=== PATIENT | female | born 1965 | race Caucasian/White ===

== ENCOUNTER 2023-02-16 16:15 | Emergency (ER) | payer OTHER ==
--- NOTE | 2023-02-16 17:47 | XRAY Report ---
PROCEDURE: Chest 1 View X-Ray INDICATIONS: chest pain TECHNIQUE: One view of the chest was acquired. COMPARISON: None. FINDINGS: Surgical changes and devices: None. Lungs and pleura: No pleural effusions or pneumothorax. Lungs are clear. Mediastinum: Mediastinal contours appear normal. Heart size is normal. Bones and chest wall: No suspicious bony lesions. Overlying soft tissues appear unremarkable. IMPRESSION: No acute cardiopulmonary process. Reviewed by: Mimi Garzon MD on 02/16/2023 5:46 PM PDT Approved by: Mimi Garzon MD on 02/16/2023 5:46 PM PDT Station ID: [id number]
--- NOTE | 2023-02-16 17:54 | ED Physician Documentation ---
History of Present Illness - Stated complaint Stated Complaint: COUGH,SOA X 3 DAYS - Chief complaint Chief Complaint: Resp - History obtained from History obtained from: Patient - Additonal information Additional information: This is a 57-year-old female with no significant past medical history who is visiting from [place] and states that she has had cough and mild shortness of breath for the last 3 days. She feels a little more short of breath when she lays down to sleep. Main concern is that this could be pneumonia as she did develop pneumonia about 15 months ago after having COVID. She states since then she has had a chronic cough that does not go away but it seems a little bit worse the last few days. She has not had a fever, no chest pain, no sinus symptoms or sore throat, no abdominal pain nausea vomiting or diarrhea. She bought some [id number] cough medication with elderberry syrup and it but has only used it once thus far. No other alleviating or exacerbating factors. Review of Systems Constitutional: reports: Reviewed and negative Ears: reports: Reviewed and negative Nose: reports: Rhinorrhea / runny nose. denies: Congestion, Sinus pressure / pain Throat: reports: Reviewed and negative Cardiac: reports: Reviewed and negative Respiratory: reports: Dyspnea, Cough, Wheezing. denies: Hemoptysis GI: reports: Reviewed and negative : reports: Reviewed and negative Skin: reports: Reviewed and negative Musculoskeletal: reports: Reviewed and negative Neurologic: reports: Reviewed and negative PD PAST MEDICAL HISTORY - Past Medical History Past Medical History: Yes Respiratory: Other (Chronic cough post COVID) - Present Medications Home Medications: Ambulatory Orders Medication Instructions Recorded Confirmed No Known Home Medications 02/16/23 02/16/23 - Allergies Allergies/Adverse Reactions: Allergies Allergy/AdvReac Type Severity Reaction Status Date / Time No Known Drug Allergies Allergy Verified 02/16/23 16:25 PD ED PE NORMAL - Vitals Vital signs reviewed: Yes - General General: Alert and oriented X 3, No acute distress, Well developed/nourished - HEENT HEENT: Atraumatic, Moist mucous membranes, Pharynx benign - Neck Neck: Supple, no meningeal sign, No JVD - Cardiac Cardiac: RRR, No murmur, No gallop, No rub - Respiratory Respiratory: No respiratory distress, Clear bilaterally - Derm Derm: Normal color, Warm and dry - Extremities Extremities: No edema, No calf tenderness / cord Results - Vitals Vitals: Vital Signs - 24 hr 02/16/23 16:21 Temperature 35.8 C L Heart Rate 65 Respiratory 17 Rate Blood Pressure 119/69 O2 Saturation 98 Oxygen O2 Source Room air - Rads (name of study) No standard instances Relevant Findings:: Final report received PD Medical Decision Making - ED course Complexity details: reviewed results, re-evaluated patient, considered differential, d/w patient ED course: 57-year-old female presents with coughFor the past 3 days, mild shortness of breath. She is well-appearing on physical exam, vital signs are stable, she is actually well on room air. Her lung sounds are clear. I did obtain x-ray as patient was concerned about possible pneumonia given her history and this was negative. She has no signs of fluid overload, no orthopnea, no lower extremity swelling or weight changes. We did collect a viral PCR swab and this is pending, patient would like to be called with results if positive. She was advised that this is likely a viral upper respiratory infection and recommended supportive measures including [id number] cough or cold medication as needed, Tylenol, oral fluids and rest. I discussed return precautions if new or worsening symptoms including fever, increasing dyspnea or chest pain or other new concerns. Departure - Departure Disposition: 01 Home, Self Care Clinical Impression: Upper respiratory tract infection Qualifiers: URI type: unspecified viral URI Qualified Code(s): J06.9 - Acute upper respiratory infection, unspecified Condition: Good Instructions: ED Viral Syndrome Comments: Thank you for visiting [facility] for your care. Your physical exam is reassuring, her vital signs are stable and her lung sounds clear. We did obtain an x-ray which does not show any signs of pneumonia or fluid in the lungs. I suspect you have a viral upper respiratory infection. We have collected a viral panel and will notify you if there are any positive results. Otherwise, treat this as a common cold, you can take [id number] cough medicine, throat lozenges, stay well-hydrated. If you develop a fever, increasing shortness of breath or other new concerns, return to the ER.
[2023-02-16 18:01] VITALS: BP 118/71
[2023-02-16 18:41] LABS: B. PARAPERTUSSIS- RESP PCR PAN NOT DETECTED; B. PERTUSSIS- RESP PCR PANEL NOT DETECTED; C. PNEUMONIAE- RESP PCR PANEL NOT DETECTED; CORONAVIRUS 229E-RESP PCR NOT DETECTED; CORONAVIRUS HKU1-RESP PCR NOT DETECTED; CORONAVIRUS NL63-RESP PCR NOT DETECTED; CORONAVIRUS OC43-RESP PCR NOT DETECTED; HUMAN METAPNEUMOVIRUS NOT DETECTED; INFLUENZA A- RESP PCR PANEL NOT DETECTED; INFLUENZA B - RESP PCR PANEL NOT DETECTED; M. PNEUMONIAE- RESP PCR PANEL NOT DETECTED; PARAINFLUENZA VIRUS 1 NOT DETECTED; PARAINFLUENZA VIRUS 2 NOT DETECTED; PARAINFLUENZA VIRUS 3 NOT DETECTED; PARAINFLUENZA VIRUS 4 NOT DETECTED; RHINOVIRUS/ENTEROVIRUS NOT DETECTED; RSV- RESP PCR PANEL NOT DETECTED; SARS-CoV-2 -RESP PCR PANEL NOT DETECTED
== END 2023-02-16 18:05 | disposition home or self-care (01) ==
LOC: ED 16:15
DX: J06.9 Acute upper respiratory infection, unspecified (principal)
CPT/HCPCS: 87633; 99283; 99284